=== PATIENT | female | born 2005 | race Two or more races ===

== ENCOUNTER 2025-01-07 02:54 | Emergency (ER) | payer OTHER ==
[~2025-01-07] VITALS: Ht 160 cm; Wt 58.1 kg
[2025-01-07 03:18] VITALS: BP 103/68; O2SAT 97
[2025-01-07] MEDS ORDERED: HYOSCYAMINE SULFATE 0.125 MG TAB.SUBL ONE (03:33)
[2025-01-07] MEDS ORDERED: PROMETHAZINE HCL 50 MG/ML AMPUL IM ONE (03:33)
[2025-01-07] MEDS ORDERED: FAMOTIDINE/PF 20 MG/2 ML VIAL ONE ×2 (03:33→07:47)
[2025-01-07] MEDS ORDERED: LACTOBACILLUS ACIDOPHILUS 1 CAP CAP PO STA (03:33)
[2025-01-07] MEDS ORDERED: PROMETHAZINE HCL 50 MG/ML AMPUL IM STA (03:33)
[2025-01-07] MEDS ORDERED: HYOSCYAMINE SULFATE 0.125 MG TAB.SUBL SL STA (03:33)
[2025-01-07] MEDS ORDERED: LACTOBACILLUS ACIDOPHILUS 1 CAP CAP PO ONE (03:33)
[2025-01-07] MEDS ORDERED: FAMOTIDINE/PF 20 MG/2 ML VIAL IV PUSH STA ×2 (03:33→07:46)
[2025-01-07] MEDS ORDERED: 0.9 % SODIUM CHLORIDE 1,000 ML IV ONE (03:45)
[2025-01-07 04:02] LABS: BASO % 0.2 % (0.1-1.2); EOS # 0.02 (0.04-0.54); EOS % 0.1 % (0.7-7.0); LYMPH # 0.79 (1.18-3.74); LYMPH % 5.4 % (19.3-53.1); MEAN PLATELET VOLUME 9.40 fl (9.4-12.4); MONO # 0.92 (0.24-0.82); MONO % 6.2 % (4.7-12.5); NEUT # 12.91 (1.56-6.13); NEUT % 87.7 % (34.0-71.1); RED CELL DISTRIBUTION WIDTH 11.0 % (11.6-14.4)
[2025-01-07 04:18] LABS: BUN CREA RATIO 23.0 (7.0-25.0); CREATININE SERUM 0.86 mg/dL (0.55-1.02); GFR 84.12; GLUCOSE FASTING 158.0 mg/dL (65-100); OSMOLALITY SERUM 287.0 MOSM/KG (275-295)
[2025-01-07] MEDS ORDERED: POTASSIUM CHLORIDE IN 0.9%NACL 40 MEQ/1,000 ML PIGGYBAG IV ONE (04:30)
[2025-01-07] MEDS ORDERED: ONDANSETRON HCL 2 MG/ML VIAL ONE (05:21)
[2025-01-07] MEDS ORDERED: ONDANSETRON HCL 2 MG/ML VIAL IV ONE (05:30)
[2025-01-07 05:47] LABS: URINE APPEARANCE Clear; URINE BILIRRUBIN Negative (NEGATIVE); URINE BLOOD Moderate; URINE COLOR Dark Yellow; URINE GLUCOSE Negative (NEGATIVE); URINE LEUKOCYTE Small; URINE NITRATE Negative; URINE PROTEIN 30 (NEGATIVE); URINE UROBILINOGEN 1.0 E.U./dl
[2025-01-07 05:52] LABS: URINE BACTERIA 784.7 uL (0.0-1933); URINE EPITHELIAL CELLS 33.3 uL (0.0-38.8); URINE RBC 24.1 uL (0.0-20.8); URINE WBC 31.5 uL (0.0-23.2)
[2025-01-07 06:23] LABS: URINE CAST 0.43 uL (0.0-1.40); URINE CRYSTALS FEW /HPF; URINE KETONE >=160 (NEGATIVE); URINE YEAST MANY /hpf
[2025-01-07] MEDS ORDERED: CIPROFLOXACIN IN 5 % DEXTROSE 400 MG/200 ML PIGGYBAG IV ONE (06:46)
[2025-01-07] MEDS ORDERED: CIPROFLOXACIN IN 5 % DEXTROSE 400 MG/200 ML PIGGYBAG IV STA (06:47)
== END 2025-01-07 13:02 | disposition home or self-care (01) ==
LOC: ER 03:31
PROVIDERS: General Practice
DX: R11.10 Vomiting, unspecified (principal); R19.7 Diarrhea, unspecified